=== PATIENT | male | born 1945 | race Caucasian/White ===

== ENCOUNTER 2020-11-04 05:29 | Inpatient (IN) | payer OTHER ==
[~2020-11-04] VITALS: Ht 193 cm; Wt 61.6 kg
[2020-11-04 07:03] LABS: Alanine Aminotransferase 37 U/L (16-61); Anion Gap 12 (5-15); Aspartate Aminotransferase 28 U/L (15-37); Blood Urea Nitrogen 33 mg/dL (7-18); Calcium 8.8 mg/dL (8.5-10.1); Carbon Dioxide 22 mmol/L (21-32); Chloride 96 mmol/L (98-107); GFR African American 97 mL/min; GFR Non-African American 80 mL/min; Glucose 126 mg/dL (74-106); Potassium 4.8 mmol/L (3.5-5.1); Sodium 130 mmol/L (136-145)
[2020-11-04 07:07] LABS: Alkaline Phosphatase 158 U/L (45-117); Bilirubin, Total 0.8 mg/dL (0.2-1.0); Total Protein 7.3 g/dL (6.4-8.2)
[2020-11-04 07:09] LABS: Basophils # (auto) 0.1 10 ^3/uL (0-0.2); Basophils % (auto) 0.3 % (0.0-2.0); Eosinophils # (auto) 0.1 10 ^3/uL (0-0.8); Hemoglobin 14.8 g/dL (13.5-17.5); Lymphocytes # (auto) 0.9 10 ^3/uL (0.4-5.4); Mean Corpuscular Hgb Conc. 34.1 g/dL (32.0-36.0)
[2020-11-04 07:11] LABS: Eosinophils % (auto) 0.5 % (0.0-7.0); Hematocrit 43.2 % (41.0-53.0); Lymphocytes % (auto) 3.9 % (10.0-50.0); Mean Corpuscular Hemoglobin 30.2 pg (28.0-32.0); Mean Corpuscular Volume 88.5 fL (80.0-100.0); Monocytes % (auto) 4.2 % (0.0-12.0); Neutrophils # (auto) 21.5 10 ^3/uL (1.6-8.6); Neutrophils % (auto) 91.1 % (37.0-80.0); Nucleated Red Blood Cells % 0.1 %; Red Blood Cells 4.88 10^6/uL (4.5-5.90); Red Cell Distribution Width 14.7 % (11.8-14.3); White Blood Cell 23.6 10^3/uL (4.4-10.8)
[2020-11-04 08:21] LABS: Platelet Count (auto) 531 10^3/uL (140-450)
[2020-11-04] MEDS ORDERED: OMNIPAQUE ORAL SOLN 500ml 12mg/ml PO ONE (08:31)
[2020-11-04] MEDS ORDERED: IOHEXOL 350 MG/ML 100ML IJ ONE (09:25)
[2020-11-04] MEDS ORDERED: LORazepam 2MG/ML-1ML VIAL IV ONE (13:45)
[2020-11-04] MEDS ORDERED: NITROGLYCERIN 0.4 MG SL TAB SL PRN (16:15)
[2020-11-04] MEDS ORDERED: ACETAMINOPHEN 500 MG TAB PO PRN (16:15)
[2020-11-04] MEDS ORDERED: HYDROcodone-ACET 5/325MG TAB PO PRN (16:15)
[2020-11-04] MEDS ORDERED: MORPHINE SULF INJ 2 MG/ML SYRINGE 1ML IV PRN ×2 (16:15)
[2020-11-04] MEDS ORDERED: ONDANSETRON HCL 4 MG/2 ML VIAL IV PRN (16:15)
[2020-11-04 17:37] LABS: Magnesium 2.2 mg/dL (1.6-2.6)
[2020-11-04 17:47] LABS: CRP High Sensitivity 1.18 mg/dL (< 0.3)
[2020-11-04 21:03] VITALS: BP 112/76
[2020-11-04] MEDS: LORazepam 0.5 MG TAB PO PRN (21:16)
[2020-11-04] MEDS: ENOXAPARIN SOD 40 MG/0.4 ML SYRINGE SC SCH (21:16)
[2020-11-04] MEDS: BUDESONIDE (INHALATION) 180 MCG IH IN SCH (22:00)
[2020-11-04 22:09] VITALS: BP 112/76
[2020-11-05] VITALS: BP 101/68
[2020-11-05] MEDS ORDERED: IVERMECTIN 3 MG TAB PO ONE (07:00)
[2020-11-05 08:00] VITALS: BP 104/61
[2020-11-05 08:03] LABS: Basophils # (auto) 0.1 10 ^3/uL (0-0.2); Basophils % (auto) 0.5 % (0.0-2.0); Eosinophils # (auto) 0.4 10 ^3/uL (0-0.8); Eosinophils % (auto) 3.2 % (0.0-7.0); Hematocrit 35.4 % (41.0-53.0); Hemoglobin 12.3 g/dL (13.5-17.5); Lymphocytes # (auto) 0.8 10 ^3/uL (0.4-5.4); Lymphocytes % (auto) 6.2 % (10.0-50.0); Mean Corpuscular Hemoglobin 30.5 pg (28.0-32.0); Mean Corpuscular Hgb Conc. 34.6 g/dL (32.0-36.0); Mean Corpuscular Volume 88.1 fL (80.0-100.0); Monocytes # (auto) 0.8 10 ^3/uL (0-1.3); Monocytes % (auto) 6.1 % (0.0-12.0); Neutrophils # (auto) 11.5 10 ^3/uL (1.6-8.6); Platelet Count (auto) 361 10^3/uL (140-450); Red Blood Cells 4.01 10^6/uL (4.5-5.90); White Blood Cell 13.7 10^3/uL (4.4-10.8)
[2020-11-05 08:29] LABS: Potassium 4.8 mmol/L (3.5-5.1)
[2020-11-05 08:37] LABS: Albumin 2.5 g/dL (3.4-5.0); BUN/Creatinine Ratio 17.6; Bilirubin, Total 0.6 mg/dL (0.2-1.0); Calcium 7.9 mg/dL (8.5-10.1); Total Protein 6.4 g/dL (6.4-8.2)
[2020-11-05] MEDS: cefTRIAXone 1GM/50ML D5W 50 ML IV SCH (09:30)
[2020-11-05] MEDS: DexAMETHasone SOD PHOS 10MG/1ML VIAL INJ IV SCH (09:30)
[2020-11-05] MEDS: ZINC SULFATE 220mg CAP or TAB PO SCH (09:31)
[2020-11-05] MEDS: AZITHROMYCIN 500MG/ 250ML 250 ML IV SCH (09:31)
[2020-11-05] MEDS: ASCORBIC ACID 1,000 MG TAB PO SCH (09:32)
[2020-11-05] MEDS: FAMOTIDINE 20 MG TAB PO SCH (09:32)
[2020-11-05] MEDS: MEMANTINE HCL 5 MG TAB PO SCH (09:32)
[2020-11-05] MEDS: CHOLECALCIFEROL (VITD3) 2,000 UNIT CAP/TAB PO SCH (09:32)
[2020-11-05] MEDS: ENOXAPARIN SOD 40 MG/0.4 ML SYRINGE SC SCH ×2 (09:33→23:04)
[2020-11-05] MEDS: BUDESONIDE (INHALATION) 180 MCG IH IN SCH ×2 (10:00→22:00)
[2020-11-06] VITALS: BP 115/75
[2020-11-06 08:00] VITALS: BP 122/65
[2020-11-06] MEDS: cefTRIAXone 1GM/50ML D5W 50 ML IV SCH (09:36)
[2020-11-06] MEDS: ASCORBIC ACID 1,000 MG TAB PO SCH (09:47)
[2020-11-06] MEDS: ENOXAPARIN SOD 40 MG/0.4 ML SYRINGE SC SCH ×2 (09:48→22:32)
[2020-11-06] MEDS: DexAMETHasone SOD PHOS 10MG/1ML VIAL INJ IV SCH (09:48)
[2020-11-06] MEDS: FAMOTIDINE 20 MG TAB PO SCH (09:48)
[2020-11-06] MEDS: ZINC SULFATE 220mg CAP or TAB PO SCH (09:48)
[2020-11-06] MEDS: CHOLECALCIFEROL (VITD3) 2,000 UNIT CAP/TAB PO SCH (09:50)
[2020-11-06] MEDS: MEMANTINE HCL 5 MG TAB PO SCH (09:50)
[2020-11-06] MEDS: BUDESONIDE (INHALATION) 180 MCG IH IN SCH ×2 (10:00→20:16)
[2020-11-06] MEDS: AZITHROMYCIN 500MG/ 250ML 250 ML IV SCH (10:46)
[2020-11-06 16:00] VITALS: BP 111/69
[2020-11-06] MEDS: TAMSULOSIN HYDROCHLORIDE 0.4 MG CAP PO SCH (18:52)
[2020-11-06] MEDS: ALBUTEROL SULF HFA 90MCG INH 200DOSE IN PRN (20:17)
[2020-11-06] MEDS: LORazepam 0.5 MG TAB PO PRN (22:38)
[2020-11-06 23:40] LABS: Basophils # (auto) 0 10 ^3/uL (0-0.2); Basophils % (auto) 0.2 % (0.0-2.0); Eosinophils # (auto) 0 10 ^3/uL (0-0.8); Eosinophils % (auto) 0.1 % (0.0-7.0); Hematocrit 37.8 % (41.0-53.0); Hemoglobin 12.9 g/dL (13.5-17.5); Lymphocytes # (auto) 0.6 10 ^3/uL (0.4-5.4); Lymphocytes % (auto) 5.1 % (10.0-50.0); Mean Corpuscular Hemoglobin 30.2 pg (28.0-32.0); Mean Corpuscular Hgb Conc. 34.1 g/dL (32.0-36.0); Mean Corpuscular Volume 88.7 fL (80.0-100.0); Monocytes # (auto) 0.5 10 ^3/uL (0-1.3); Monocytes % (auto) 4.8 % (0.0-12.0); Neutrophils % (auto) 89.8 % (37.0-80.0); Platelet Count (auto) 368 10^3/uL (140-450); Red Blood Cells 4.26 10^6/uL (4.5-5.90); White Blood Cell 11.2 10^3/uL (4.4-10.8)
[2020-11-06 23:56] LABS: Albumin 2.6 g/dL (3.4-5.0); Calcium 8.1 mg/dL (8.5-10.1); Potassium 4.1 mmol/L (3.5-5.1)
[2020-11-07] VITALS: BP 129/85
[2020-11-07 00:02] LABS: BUN/Creatinine Ratio 31.6; Bilirubin, Total 0.4 mg/dL (0.2-1.0); Total Protein 6.8 g/dL (6.4-8.2)
[2020-11-07] MEDS: ALBUTEROL SULF HFA 90MCG INH 200DOSE IN PRN ×2 (06:45→21:50)
[2020-11-07] MEDS: BUDESONIDE (INHALATION) 180 MCG IH IN SCH ×2 (06:45→20:48)
[2020-11-07 07:04] LABS: Basophils # (auto) 0 10 ^3/uL (0-0.2); Basophils % (auto) 0.2 % (0.0-2.0); Eosinophils # (auto) 0.1 10 ^3/uL (0-0.8); Eosinophils % (auto) 0.8 % (0.0-7.0); Hematocrit 39.8 % (41.0-53.0); Hemoglobin 13.6 g/dL (13.5-17.5); Lymphocytes # (auto) 1.3 10 ^3/uL (0.4-5.4); Mean Corpuscular Hemoglobin 30.3 pg (28.0-32.0); Monocytes # (auto) 0.8 10 ^3/uL (0-1.3); Monocytes % (auto) 6.3 % (0.0-12.0); Neutrophils # (auto) 10.6 10 ^3/uL (1.6-8.6); Neutrophils % (auto) 82.7 % (37.0-80.0); Nucleated Red Blood Cells % 0.1 %; Platelet Count (auto) 342 10^3/uL (140-450); Red Blood Cells 4.48 10^6/uL (4.5-5.90); White Blood Cell 12.7 10^3/uL (4.4-10.8)
[2020-11-07 07:34] LABS: Albumin 2.7 g/dL (3.4-5.0); Calcium 8.5 mg/dL (8.5-10.1); Potassium 4.2 mmol/L (3.5-5.1)
[2020-11-07 07:37] LABS: Bilirubin, Total 0.5 mg/dL (0.2-1.0); Total Protein 6.8 g/dL (6.4-8.2)
[2020-11-07 07:49] VITALS: BP 110/78
[2020-11-07] MEDS: cefTRIAXone 1GM/50ML D5W 50 ML IV SCH (08:58)
[2020-11-07] MEDS: ZINC SULFATE 220mg CAP or TAB PO SCH (10:51)
[2020-11-07] MEDS: AZITHROMYCIN 500MG/ 250ML 250 ML IV SCH (10:51)
[2020-11-07] MEDS: MEMANTINE HCL 5 MG TAB PO SCH (10:51)
[2020-11-07] MEDS: DexAMETHasone SOD PHOS 10MG/1ML VIAL INJ IV SCH (10:51)
[2020-11-07] MEDS: FAMOTIDINE 20 MG TAB PO SCH (10:52)
[2020-11-07] MEDS: CHOLECALCIFEROL (VITD3) 2,000 UNIT CAP/TAB PO SCH (10:52)
[2020-11-07] MEDS: ENOXAPARIN SOD 40 MG/0.4 ML SYRINGE SC SCH ×2 (10:52→21:35)
[2020-11-07] MEDS: ASCORBIC ACID 1,000 MG TAB PO SCH (10:52)
[2020-11-07] MEDS: LORazepam 0.5 MG TAB PO PRN (12:34)
[2020-11-07 14:03] LABS: Urine Bacteria FEW /hpf (None Seen); Urine Blood 1+ /uL (Negative); Urine Mucus FEW (None Seen); Urine Specific Gravity 1.027 (1.001-1.035); Urine WBC 117 /hpf (0 - 3)
[2020-11-07 14:19] LABS: Protein, Urine 75.8 mg/dL (0.0-11.9)
[2020-11-07 15:28] VITALS: BP 122/78
[2020-11-07] MEDS: TAMSULOSIN HYDROCHLORIDE 0.4 MG CAP PO SCH (17:49)
[2020-11-08] VITALS: BP 129/82
[2020-11-08] MEDS: ALBUTEROL SULF HFA 90MCG INH 200DOSE IN PRN ×2 (06:30→19:15)
[2020-11-08 07:41] LABS: Basophils # (auto) 0 10 ^3/uL (0-0.2); Basophils % (auto) 0.3 % (0.0-2.0); Eosinophils # (auto) 0.4 10 ^3/uL (0-0.8); Hematocrit 40.6 % (41.0-53.0); Hemoglobin 13.7 g/dL (13.5-17.5); Lymphocytes # (auto) 1.4 10 ^3/uL (0.4-5.4); Mean Corpuscular Hemoglobin 30.3 pg (28.0-32.0); Mean Corpuscular Hgb Conc. 33.7 g/dL (32.0-36.0); Mean Corpuscular Volume 89.9 fL (80.0-100.0); Monocytes # (auto) 0.8 10 ^3/uL (0-1.3); Monocytes % (auto) 5.9 % (0.0-12.0); Neutrophils # (auto) 10.4 10 ^3/uL (1.6-8.6); Neutrophils % (auto) 79.8 % (37.0-80.0); Nucleated Red Blood Cells % 0.1 %; Platelet Count (auto) 336 10^3/uL (140-450); Red Blood Cells 4.52 10^6/uL (4.5-5.90); Red Cell Distribution Width 14.8 % (11.8-14.3)
[2020-11-08 07:54] LABS: Albumin 2.6 g/dL (3.4-5.0); Calcium 8.2 mg/dL (8.5-10.1); Potassium 4.2 mmol/L (3.5-5.1)
[2020-11-08 07:59] LABS: BUN/Creatinine Ratio 29.3; Bilirubin, Total 0.5 mg/dL (0.2-1.0); Total Protein 6.6 g/dL (6.4-8.2)
[2020-11-08 08:00] VITALS: BP 110/68
[2020-11-08] MEDS: cefTRIAXone 1GM/50ML D5W 50 ML IV SCH (10:14)
[2020-11-08] MEDS: AZITHROMYCIN 500MG/ 250ML 250 ML IV SCH (10:14)
[2020-11-08] MEDS: DexAMETHasone SOD PHOS 10MG/1ML VIAL INJ IV SCH (10:14)
[2020-11-08] MEDS: ZINC SULFATE 220mg CAP or TAB PO SCH (10:15)
[2020-11-08] MEDS: FAMOTIDINE 20 MG TAB PO SCH (10:15)
[2020-11-08] MEDS: MEMANTINE HCL 5 MG TAB PO SCH (10:15)
[2020-11-08] MEDS: ASCORBIC ACID 1,000 MG TAB PO SCH (10:15)
[2020-11-08] MEDS: ENOXAPARIN SOD 40 MG/0.4 ML SYRINGE SC SCH ×2 (10:17→21:44)
[2020-11-08] MEDS: CHOLECALCIFEROL (VITD3) 2,000 UNIT CAP/TAB PO SCH (10:17)
[2020-11-08] MEDS: LORazepam 0.5 MG TAB PO PRN (13:26)
[2020-11-08 16:00] VITALS: BP 112/79
[2020-11-08] MEDS: TAMSULOSIN HYDROCHLORIDE 0.4 MG CAP PO SCH (17:35)
[2020-11-08] MEDS: BUDESONIDE (INHALATION) 180 MCG IH IN SCH (19:14)
[2020-11-09 00:31] VITALS: BP 106/77
[2020-11-09] MEDS: BUDESONIDE (INHALATION) 180 MCG IH IN SCH ×2 (06:56→20:43)
[2020-11-09] MEDS: ALBUTEROL SULF HFA 90MCG INH 200DOSE IN PRN ×2 (06:56→20:43)
[2020-11-09 07:54] VITALS: BP 120/84
[2020-11-09] MEDS: cefTRIAXone 1GM/50ML D5W 50 ML IV SCH (08:03)
[2020-11-09 08:24] LABS: Basophils # (auto) 0.1 10 ^3/uL (0-0.2); Basophils % (auto) 0.5 % (0.0-2.0); Eosinophils # (auto) 0.7 10 ^3/uL (0-0.8); Eosinophils % (auto) 6.2 % (0.0-7.0); Hematocrit 39.2 % (41.0-53.0); Hemoglobin 13.3 g/dL (13.5-17.5); Lymphocytes # (auto) 1.7 10 ^3/uL (0.4-5.4); Mean Corpuscular Hemoglobin 29.9 pg (28.0-32.0); Mean Corpuscular Hgb Conc. 33.8 g/dL (32.0-36.0); Mean Corpuscular Volume 88.4 fL (80.0-100.0); Monocytes # (auto) 0.7 10 ^3/uL (0-1.3); Monocytes % (auto) 5.6 % (0.0-12.0); Neutrophils # (auto) 8.9 10 ^3/uL (1.6-8.6); Neutrophils % (auto) 73.7 % (37.0-80.0); Nucleated Red Blood Cells % 0.1 %; Platelet Count (auto) 321 10^3/uL (140-450); Red Blood Cells 4.43 10^6/uL (4.5-5.90); Red Cell Distribution Width 15.1 % (11.8-14.3)
[2020-11-09 08:42] LABS: Albumin 2.5 g/dL (3.4-5.0); Potassium 4.2 mmol/L (3.5-5.1)
[2020-11-09 08:46] LABS: BUN/Creatinine Ratio 32.4; Bilirubin, Total 0.4 mg/dL (0.2-1.0); Total Protein 6.4 g/dL (6.4-8.2)
[2020-11-09] MEDS: DexAMETHasone SOD PHOS 10MG/1ML VIAL INJ IV SCH (09:11)
[2020-11-09] MEDS: ZINC SULFATE 220mg CAP or TAB PO SCH (09:12)
[2020-11-09] MEDS: AZITHROMYCIN 500MG/ 250ML 250 ML IV SCH (09:12)
[2020-11-09] MEDS: FAMOTIDINE 20 MG TAB PO SCH (09:13)
[2020-11-09] MEDS: MEMANTINE HCL 5 MG TAB PO SCH (09:13)
[2020-11-09] MEDS: ASCORBIC ACID 1,000 MG TAB PO SCH (09:13)
[2020-11-09] MEDS: CHOLECALCIFEROL (VITD3) 2,000 UNIT CAP/TAB PO SCH (09:14)
[2020-11-09] MEDS: ENOXAPARIN SOD 40 MG/0.4 ML SYRINGE SC SCH ×2 (09:14→21:34)
[2020-11-09] MEDS ORDERED: PAR20T PO (10:26)
[2020-11-09] MEDS ORDERED: ATOR20TA50 PO (10:29)
[2020-11-09] MEDS ORDERED: LORA0.5T20 PO (10:29)
[2020-11-09] MEDS ORDERED: OMEP20TA PO (10:29)
[2020-11-09] MEDS ORDERED: APIX5TAB PO (13:34)
[2020-11-09] MEDS ORDERED: DEX4T PO (13:34)
[2020-11-09 16:00] VITALS: BP 157/81
[2020-11-09] MEDS: TAMSULOSIN HYDROCHLORIDE 0.4 MG CAP PO SCH (17:02)
[2020-11-10] VITALS: BP 122/82
[2020-11-10] MEDS: BUDESONIDE (INHALATION) 180 MCG IH IN SCH ×2 (07:06→19:46)
[2020-11-10] MEDS: ALBUTEROL SULF HFA 90MCG INH 200DOSE IN PRN ×2 (07:06→19:47)
[2020-11-10 08:00] VITALS: BP 126/77
[2020-11-10] MEDS: AZITHROMYCIN 500MG/ 250ML 250 ML IV SCH (08:29)
[2020-11-10] MEDS: cefTRIAXone 1GM/50ML D5W 50 ML IV SCH (08:29)
[2020-11-10] MEDS: MEMANTINE HCL 5 MG TAB PO SCH (08:29)
[2020-11-10] MEDS: DexAMETHasone SOD PHOS 10MG/1ML VIAL INJ IV SCH (08:29)
[2020-11-10] MEDS: ZINC SULFATE 220mg CAP or TAB PO SCH (08:29)
[2020-11-10] MEDS: CHOLECALCIFEROL (VITD3) 2,000 UNIT CAP/TAB PO SCH (08:30)
[2020-11-10] MEDS: ASCORBIC ACID 1,000 MG TAB PO SCH (08:30)
[2020-11-10] MEDS: FAMOTIDINE 20 MG TAB PO SCH (08:30)
[2020-11-10] MEDS: ENOXAPARIN SOD 40 MG/0.4 ML SYRINGE SC SCH ×2 (08:30→22:00)
[2020-11-10 16:00] VITALS: BP 124/71
[2020-11-10] MEDS: TAMSULOSIN HYDROCHLORIDE 0.4 MG CAP PO SCH (18:29)
[2020-11-10 19:00] LABS: Basophils # (auto) 0 10 ^3/uL (0-0.2); Basophils % (auto) 0.1 % (0.0-2.0); Eosinophils # (auto) 0.1 10 ^3/uL (0-0.8); Eosinophils % (auto) 0.8 % (0.0-7.0); Hematocrit 42.2 % (41.0-53.0); Hemoglobin 14.7 g/dL (13.5-17.5); Lymphocytes # (auto) 0.7 10 ^3/uL (0.4-5.4); Lymphocytes % (auto) 7.4 % (10.0-50.0); Mean Corpuscular Hemoglobin 31.1 pg (28.0-32.0); Mean Corpuscular Hgb Conc. 34.8 g/dL (32.0-36.0); Mean Corpuscular Volume 89.2 fL (80.0-100.0); Monocytes # (auto) 0.3 10 ^3/uL (0-1.3); Monocytes % (auto) 3.4 % (0.0-12.0); Neutrophils # (auto) 8.5 10 ^3/uL (1.6-8.6); Neutrophils % (auto) 88.3 % (37.0-80.0); Platelet Count (auto) 347 10^3/uL (140-450); Red Blood Cells 4.73 10^6/uL (4.5-5.90); Red Cell Distribution Width 15.4 % (11.8-14.3); White Blood Cell 9.6 10^3/uL (4.4-10.8)
[2020-11-10 19:18] LABS: Albumin 2.8 g/dL (3.4-5.0); BUN/Creatinine Ratio 25.3; Calcium 8.4 mg/dL (8.5-10.1); Potassium 4.3 mmol/L (3.5-5.1)
[2020-11-10 19:28] LABS: Bilirubin, Total 0.5 mg/dL (0.2-1.0)
[2020-11-11] VITALS: BP 108/73
[2020-11-11 06:38] LABS: Basophils # (auto) 0 10 ^3/uL (0-0.2); Basophils % (auto) 0.3 % (0.0-2.0); Eosinophils # (auto) 0.6 10 ^3/uL (0-0.8); Eosinophils % (auto) 4.7 % (0.0-7.0); Hematocrit 41.6 % (41.0-53.0); Hemoglobin 14.3 g/dL (13.5-17.5); Lymphocytes # (auto) 1.2 10 ^3/uL (0.4-5.4); Lymphocytes % (auto) 10.4 % (10.0-50.0); Mean Corpuscular Hemoglobin 30.6 pg (28.0-32.0); Mean Corpuscular Hgb Conc. 34.3 g/dL (32.0-36.0); Mean Corpuscular Volume 89.2 fL (80.0-100.0); Monocytes # (auto) 0.7 10 ^3/uL (0-1.3); Monocytes % (auto) 5.7 % (0.0-12.0); Neutrophils # (auto) 9.4 10 ^3/uL (1.6-8.6); Neutrophils % (auto) 78.9 % (37.0-80.0); Nucleated Red Blood Cells % 0.1 %; Platelet Count (auto) 334 10^3/uL (140-450); Red Blood Cells 4.66 10^6/uL (4.5-5.90); Red Cell Distribution Width 15.2 % (11.8-14.3)
[2020-11-11 06:50] LABS: Albumin 2.6 g/dL (3.4-5.0); Calcium 8.3 mg/dL (8.5-10.1); Potassium 4.2 mmol/L (3.5-5.1)
[2020-11-11 06:53] LABS: Bilirubin, Total 0.5 mg/dL (0.2-1.0); Total Protein 6.4 g/dL (6.4-8.2)
[2020-11-11 08:00] VITALS: BP 122/77
[2020-11-11] MEDS: DexAMETHasone SOD PHOS 10MG/1ML VIAL INJ IV SCH (09:09)
[2020-11-11] MEDS: ENOXAPARIN SOD 40 MG/0.4 ML SYRINGE SC SCH (09:10)
[2020-11-11] MEDS: ZINC SULFATE 220mg CAP or TAB PO SCH (09:11)
[2020-11-11] MEDS: MEMANTINE HCL 5 MG TAB PO SCH (09:11)
[2020-11-11] MEDS: ASCORBIC ACID 1,000 MG TAB PO SCH (09:11)
[2020-11-11] MEDS: CHOLECALCIFEROL (VITD3) 2,000 UNIT CAP/TAB PO SCH (09:11)
[2020-11-11] MEDS: FAMOTIDINE 20 MG TAB PO SCH (09:12)
[2020-11-11] MEDS: cefTRIAXone 1GM/50ML D5W 50 ML IV SCH (09:12)
[2020-11-11] MEDS: AZITHROMYCIN 500MG/ 250ML 250 ML IV SCH (09:13)
[2020-11-11] MEDS: BUDESONIDE (INHALATION) 180 MCG IH IN SCH (09:51)
[2020-11-11] MEDS: ALBUTEROL SULF HFA 90MCG INH 200DOSE IN PRN (09:51)
[2020-11-11 13:00] VITALS: BP 122/77
[2020-11-11 16:00] VITALS: BP 129/76
[2020-11-11] MEDS ORDERED: MEMA1TAB3 PO (19:42)
[2020-11-11] MEDS ORDERED: TAM04C PO (19:42)
== END 2020-11-11 18:25 | disposition hospice, home (50) | DRG 177 ==
LOC: EDBD 05:29 → ER 05:29 → TELE 05:30 → TELE-WESTW 21:03
PROVIDERS: ADMIT Nurse Practitioner Acute Care; ATTEND Internal Medicine
DX: U07.1 COVID-19 (principal); J96.01 Acute respiratory failure with hypoxia; J12.82 Pneumonia due to coronavirus disease 2019; G93.41 Metabolic encephalopathy; E44.0 Moderate protein-calorie malnutrition; Z68.1 Body mass index [BMI] 19.9 or less, adult; J98.11 Atelectasis; N17.9 Acute kidney failure, unspecified; J98.2 Interstitial emphysema; K80.20 Calculus of gallbladder without cholecystitis without obstruction; I10 Essential (primary) hypertension; F41.9 Anxiety disorder, unspecified; D89.839 Cytokine release syndrome, grade unspecified; I25.10 Atherosclerotic heart disease of native coronary artery without angina pectoris; K44.9 Diaphragmatic hernia without obstruction or gangrene; N14.1 Nephropathy induced by other drugs, medicaments and biological substances; N40.1 Benign prostatic hyperplasia with lower urinary tract symptoms; R32 Unspecified urinary incontinence; R33.8 Other retention of urine; T50.8X5A Adverse effect of diagnostic agents, initial encounter; Z79.01 Long term (current) use of anticoagulants; Y92.89 Other specified places as the place of occurrence of the external cause
CPT/HCPCS: 36415; 36600; 70450; 71045; 71260; 71275; 74177; 76775; 80053; 81001; 82306; 82570; 82728; 82805; 83605; 83615; 83735; 84156; 84300; 84443; 84484; 85025; 85379; 86141; 87040; 87081; 87426; 87804; 93005; 93970; 94640; 96374; G0378; J0696; J1100